=== PATIENT | male | born 2000 | race Caucasian/White ===

== ENCOUNTER 2024-06-21 22:41 | Emergency (ER) | payer BC, SELFPAY ==
[2024-06-21 22:43] VITALS: BP 137/75
[2024-06-21 23:44] VITALS: BMI 21.6
[2024-06-22] MEDS: KEFLEX 500 MG PO (00:42)
[2024-06-22] MEDS: BACTRIM DS 800 MG/160 MG 1 TABLET PO (00:42)
--- NOTE | 2024-06-22 00:54 | ED.GENMED ---
History of Present Illness
General
Chief Complaint: Skin Problem
Source: patient
Exam Limitations: none
Time Seen by Provider: 06/22/24 00:16
History of Present Illness
History of Present Illness:
This is a 24 year old male that comes in with c/o abscess on his back. States that this for 2 years was a little pea size cyst. States that in the past week it has gotten much larger. States that he has an appointment with the Recreational Therapy Technician on
Monday but he didn't think he could wait. Denies any fever, chills, chest pain, SOB, abd pain, nausea, vomiting, diarrhea, headache, dizziness, urinary burning.
Past History
Past History
ED Past Medical History: None; Negative Asthma, HTN, Hypercholesterolemia or NIDDM
ED Past Surgical History: None
Social History
Tobacco: Vaping
Alcohol: Occasional
Drug: None
Personal: Single
Living: with family
Review of Systems
Review of Systems
All Other Systems: ROS reviewed and negative except as documented in HPI and ROS
Constitutional: Reports no symptoms; Denies fever or chills
EENT: Reports no symptoms
Respiratory: Reports no symptoms; Denies cough or trouble breathing
Cardiac: Reports no symptoms; Denies chest pain
ABD/GI: Reports no symptoms; Denies abdominal pain, nausea, vomiting or diarrhea
: Reports no symptoms; Denies dysuria, frequency or urgency
Musculoskeletal: Reports no symptoms
Skin: Reports other (abscess on the right upper back)
Neurological: Reports no symptoms; Denies dizzy or headache
Psychiatric: Reports no symptoms
Phy Exam
General Physical Exam
General Presentation: well appearing and no apparent distress
General age: appears stated age
General Skin: warm and dry
General Habitus: normal
General Mental: alert
General Hydration: appears well hydrated
ENT Exam
ENT Exam: TM's normal, pharynx normal and neck supple
Eye Exam
Eye Exam: EOMI
Cardiovascular Exam
Cardiovascular Exam: regular rate/rhythm, no edema, no murmur and normal peripheral pulses
Pulmonary Exam
Pulmonary Exam: lungs clear, no respiratory distress, no rales, chest non tender, no crackles, no rhonchi, no wheezing and no cough
Musculoskeletal Exam
Musculoskeletal Exam: full ROM
Skin Exam
Skin Exam: normal color, warm/dry, no petechia and other (Abscess right upper back. )
Psychiatric Exam
Psychiatric Exam: normal mood/affect
Course
Orders/Labs/Results
Orders:
Orders
06/22/24 00:35
Cephalexin Monohydrate [Keflex] 500 mg PO NOW STA
Sulfamethox./Trimethoprim Ds [Bactrim Ds 800 mg/160 mg] 1 tablet PO NOW STA
06/22/24 00:53
Wound Culture [Wound/Abscess/Other Culture] Urgent
XOCHITL Source: Back
Specimen Description:
Comment: abscess
Vital Signs
Initial and Last Documented VS:
Initial Vital Signs
Temp Pulse Resp BP Pulse Ox
97.8 F 67 18 137/75 99
06/21/24 22:43 06/21/24 22:43 06/21/24 22:43 06/21/24 22:43 06/21/24 22:43
Last Documented Vital Signs
Temp Pulse Resp BP Pulse Ox
97.8 F 67 18 137/75 99
06/21/24 22:43 06/21/24 22:43 06/21/24 22:43 06/21/24 22:43 06/21/24 22:43
Procedures
Incision/Drainage/Joint Aspiration
Left Upper Back:
Anethesia: 1% Lidocaine with Epi
Preparation: cleaned with Betadine (and alcohol wipe)
Type of procedure: incise
Nature of site: abscess
Description of abscess: greater than 3cm
How much fluid was obtained?: large amount (Fowl smell, Curd like consistency)
Fluid description: other (Whitish)
Treatment: packed with gauze and antibiotics started
MDM/Problems Addressed
Differential Diagnosis Includes:
Abscess
MDM/Problems Addressed:
This is a 24 year old male that comes in with c/o an abscess on the right upper back. States that there was a cyst there for about 2 years. Then a week ago it just grow.
Will open and drain. Packed with Gauze and started on antibiotics. will discharge home.
Chronic conditions affecting care:
NA
Acute Exacerbation and/or Progression of Chronic Illness:
NA
*Pulse Oximetry
Patient hypoxic: no
*EKG
Interpreted by ED Provider?: NA
Rate: EKG- N/A
*Dairy Nutrition Consultant Interpretation
Rate: Dairy Nutrition Consultant- N/A
*Critical Care Note
Total Time (30-74mins, 75-104mins- exclusive of procedures): Not Applicable
ED Attending Note
-
Portions of this chart may have been created with voice recognition software.� Occasional wrong word or��sound alike� substitutions may have occurred due to the inherent limitations of voice recognition software.
Discharge Plan
Departure
Patient Disposition: Home (Routine Discharge)
Date of Disposition: 06/22/24
Time of Disposition: 01:00
Patient with high blood pressure during this ER visit?: Yes
Condition: Good
Covid-19: Not Applicable
Discharge Problem:
Abscess of back
Instructions: BLOOD PRESSURE, Skin Abscess
Prescriptions:
New
cephalexin 500 mg capsule
500 mg PO Q6H 7 Days Qty: 28 0RF
sulfamethoxazole-trimethoprim [Bactrim DS] 800-160 mg tablet
1 tab PO BID 7 Days Qty: 14 0RF
No Action
ciprofloxacin HCl 0.3 % drops
2 drp ophthalmic (eye) Q4H 5 Days Qty: 10 0RF
Referrals:
UNKNOWN - PT DOES,NOT KNOW [Family Provider] -
Activity Restrictions/Additional Instructions:
As discussed, this was an abscess that is now opened and drained. Packing has been place. Please pull the packing out in 2 days. Follow up with the Recreational Therapy Technician as scheduled. You have had 2 prescription sent to the Pharmacy for the next 7 days.
Please take as directed. IF YOU HAVE ANY FEVER, INCREASED REDNESS OR YOU HAVE ANY OTHER CONCERNS PLEASE RETURN TO THE EMERGENCY ROOM.
Interventions
Interventions:
*Risk Screen - Suicide Last Done: 06/21/24 22:43
*General Assessment Last Done: 06/21/24 22:43
*Neglect/Abuse Screening Last Done: 06/21/24 22:43
ED- Fall Risk Assessment Last Done: 06/21/24 23:44
*ED COVID-19 Vaccine History Last Done: 06/21/24 23:44
ED-Skin Assessment Last Done: 06/21/24 23:44
Discharge Date and Time
Print Language: LATVIAN
== END 2024-06-22 01:27 | disposition home or self-care (01) ==
LOC: EMR 22:41
PROVIDERS: EMERGENCY PHYSICIAN Emergency Medicine
DX: L02.212 Cutaneous abscess of back [any part, except buttock and flank] (principal); R03.0 Elevated blood-pressure reading, without diagnosis of hypertension; F17.290 Nicotine dependence, other tobacco product, uncomplicated
CPT/HCPCS: 99283; 10060; 87070; 87205